=== PATIENT | male | born 1975 | race African-American/Black ===

== ENCOUNTER → 2016-08-12 | Outpatient (CLI) | payer OTHER ==
[2016-08-12 11:37] LABS: CHOLESTEROL/HDL RATIO 3.9
== END | disposition home or self-care (01) ==
LOC: C.LABBC 08:08
PROVIDERS: ATTEND Family Medicine
DX: Z13.220 Encounter for screening for lipoid disorders (principal); Z13.1 Encounter for screening for diabetes mellitus

== ENCOUNTER → 2016-08-13 | Outpatient (CLI) | payer OTHER | END | disposition home or self-care (01) | LOC: C.LABSPEC 08-12 16:43 | PROVIDERS: ATTEND Dermatology | DX: L73.0 Acne keloid (principal) ==

== ENCOUNTER → 2016-10-14 | Outpatient (CLI) | payer OTHER | END | disposition home or self-care (01) | LOC: C.LABSPEC 13:34 | PROVIDERS: ATTEND Dermatology | DX: L73.0 Acne keloid (principal); Z86.19 Personal history of other infectious and parasitic diseases ==